=== PATIENT | female | born 1980 | race Caucasian/White ===

== ENCOUNTER 2016-05-23 06:47 | Day surgery (SDC) | payer MEDICAID ==
[2016-05-23] MEDS ORDERED: HYDROCODONE/APAP 7.5/325MG TABLET PO ONE (09:46)
[2016-05-23] MEDS ORDERED: DEXAMETHASONE PRESERVATIVE FREE 10MG/ML VIAL IV ONE (09:46)
--- NOTE | 2016-05-23 10:56 | Operative Note - Ferro ---
PAIN SERVICE OPERATIVE REPORT DATE OF PROCEDURE: 05/23/2016. SURGEON: Mekhi Alex D.O. PREOPERATIVE DIAGNOSIS: LUMBAR RADICULITIS, ICD10 CODE M54.16. PROCEDURE: Fluoroscopically guided bilateral transforaminal selective segment epidural injection at L4-5. ANESTHESIA: Local sedation. ANESTHESIA PROVIDER: Jovan Paz CRNA. INDICATIONS: This patient presents with a history of intractable lumbar radiculitis. The pain starts in the back but then extends across the hips and front of both legs. Diagnostics do show a disc bulge at L4-5 which is consistent with the pattern of pain. DESCRIPTION OF PROCEDURE: Intravenous line, vital sign monitoring, intravenous sedation. Prepped and draped with sterile technique. Under imaging, the lumbar foraminal opening at 4-5 was identified and marked bilaterally. The skin was infiltrated. Two separate 20-gauge needles, one at each foraminal opening. A total of 5.0 mL of 0.125% Marcaine with dexamethasone was injected. Both needles were removed. The back was cleaned, topical antibiotic and sterile dressing were applied. We will monitor and evaluate. Mekhi Alex D.O. Date Time JOB NUMBER: [id number] cc: Dr. Sky COSTELLO
[2016-05-23] MEDS ORDERED: MIDAZOLAM HCL 2MG/2ML VIAL IV ONE (13:17)
[2016-05-23] MEDS ORDERED: KETAMINE HCL 10 MG/ML (20ML) VIAL *PACU IV ONE (13:17)
[2016-05-23] MEDS ORDERED: FENTANYL PF 100MCG/2ML VIAL IV ONE (13:17)
[2016-05-23] MEDS ORDERED: LIDOCAINE 1% W/EPI 1:200,000 MPF 30ML SQ ONE (14:33)
[2016-05-23] MEDS ORDERED: 0.9 % SODIUM CHLORIDE 10 ML VIAL IVP ONE (14:33)
[2016-05-23] MEDS ORDERED: BUPIVACAINE 0.25% W/EPI MPF 30ML VIAL IVP ONE (14:33)
[2016-05-23] MEDS ORDERED: BUPIVACAINE 0.5% W/EPI MPF 30 ML VIAL IVP ONE (14:33)
== END 2016-05-23 09:00 | disposition home or self-care (01) ==
LOC: SUR 06:47
PROVIDERS: ATTEND Pain Medicine Interventional Pain Medicine
DX: M54.16 Radiculopathy, lumbar region (principal); I10 Essential (primary) hypertension; E11.9 Type 2 diabetes mellitus without complications; Z79.84 Long term (current) use of oral hypoglycemic drugs
CPT/HCPCS: 64483; 01935; Q9967; J1100; J3010

== ENCOUNTER 2016-06-20 07:15 | Day surgery (SDC) | payer MEDICAID ==
--- NOTE | 2016-06-20 09:33 | Operative Note ---
PAIN SERVICE OPERATIVE REPORT DATE OF PROCEDURE: 06/20/2016. SURGEON: Mekhi Alex D.O. PREOPERATIVE DIAGNOSIS: 1. OSTEOARTHRITIS, LEFT HIP, ICD10 CODE M16.11. 2. GREATER TROCHANTERIC BURSITIS, LEFT HIP, ICD10 CODE M70.61. PROCEDURES: 1. Fluoroscopically guided intra-articular injection left hip. 2. Fluoroscopically guided infiltration left greater trochanteric bursa. ANESTHESIA: Local sedation. ANESTHESIA PROVIDER: Jovan Paz CRNA. INDICATIONS: This patient presents with pain which is left hip. Examination shows an area of tenderness with abduction and adduction into the hip. Diagnostics and x-ray show only mild spondylosis. DESCRIPTION OF PROCEDURE: Intravenous line, vital sign monitoring, intravenous sedation. Prepped and draped with sterile technique. The patient is in the modified Machado position, left side up. The skin was infiltrated and then a 22- gauge needle was inserted into the bursa with 5.0 mL of 0.5% Marcaine with dexamethasone was injected. The skin over the trochanter was infiltrated with a 25-gauge needle into the bursa with 5.0 mL of the same solution injected. The areas were cleaned, topical antibiotic and sterile dressing were applied. We will monitor and evaluate. Mekhi Alex D.O. Date Time JOB NUMBER: [id number] cc: Dr. Rupinder COSTELLO
[2016-06-20] MEDS ORDERED: BUPIVACAINE 0.5% W/EPI MPF 30 ML VIAL IVP ONE (12:36)
[2016-06-20] MEDS ORDERED: 0.9 % SODIUM CHLORIDE 10 ML VIAL IVP ONE (12:36)
[2016-06-20] MEDS ORDERED: DEXAMETHASONE PRESERVATIVE FREE 10MG/ML VIAL IV ONE (12:36)
[2016-06-20] MEDS ORDERED: LIDOCAINE 1% W/EPI 1:200,000 MPF 30ML SQ ONE (12:36)
[2016-06-20] MEDS ORDERED: LIDOCAINE 2% MDV (20MG/ML) 20ML VIAL IV ONE (14:42)
[2016-06-20] MEDS ORDERED: FENTANYL PF 100MCG/2ML VIAL IV ONE (14:42)
[2016-06-20] MEDS ORDERED: MIDAZOLAM HCL 2MG/2ML VIAL IV ONE (14:42)
[2016-06-20] MEDS ORDERED: PROPOFOL 10 MG/ML VIAL IV ONE (14:42)
== END 2016-06-20 09:05 | disposition home or self-care (01) ==
LOC: SUR 07:15
PROVIDERS: ATTEND Pain Medicine Interventional Pain Medicine
DX: M16.12 Unilateral primary osteoarthritis, left hip (principal); M70.61 Trochanteric bursitis, right hip; I10 Essential (primary) hypertension; E11.9 Type 2 diabetes mellitus without complications; I25.10 Atherosclerotic heart disease of native coronary artery without angina pectoris
CPT/HCPCS: 20611; 01200; J1100; J3010

== ENCOUNTER 2016-11-07 07:06 | Day surgery (SDC) | payer MEDICAID ==
[2016-11-07] MEDS ORDERED: BUPIVACAINE 0.5% W/EPI MPF 30 ML VIAL IVP ONE (13:44)
[2016-11-07] MEDS ORDERED: BUPIVACAINE 0.5% (5MG/ML) PF 30ML VIAL IVP ONE (13:44)
[2016-11-07] MEDS ORDERED: BETAMETHASONE 6 MG/1 ML 5ML VIAL IM ONE (13:44)
[2016-11-07] MEDS ORDERED: LIDOCAINE 1% W/EPI 1:200,000 MPF 30ML SQ ONE (13:44)
--- NOTE | 2016-11-07 15:16 | Operative Note - Ferro ---
DATE OF SURGERY: 11/07/16 PREOPERATIVE DIAGNOSES: 1. OSTEOARTHRITIS, LEFT HIP, ICD-10 CODE = M16.12. 2. GREATER TROCHANTERIC BURSITIS, LEFT HIP, ICD-10 CODE = M70.62. OPERATION: 1. FLUOROSCOPICALLY-GUIDED INTRAARTICULAR INJECTION, LEFT HIP. 2. FLUOROSCOPICALLY-GUIDED INFILTRATION, LEFT HIP BURSA. SURGEON: HARRIS CEDENO D.O. ANESTHESIA: LOCAL SEDATION. ANESTHESIA PROVIDER: ASIYA SAN C.R.N.A. INDICATION: This patient presents with left hip pain. Diagnostics do show osteoarthritis. Pain is reproduced with abduction/adduction. There is tenderness along the lateral border consistent with bursitis. PROCEDURE: Intravenous line, vital sign monitoring, IV sedation, prepped and draped with sterile technique. Under imaging with the patient in a lateral Machado position, a 22-gauge needle was inserted intraarticular, left hip, with 5 mL of 0.5% Marcaine with Dexamethasone injected. The trochanter identified. Skin infiltrated and a 25-gauge needle to infiltrate 5 mL of the same solution into the bursa. Areas cleaned, topical antibiotic, and sterile dressing applied. We will monitor and evaluate. cc: Primary Physician JOB NUMBER: [id number] MTDD
[2016-11-07] MEDS ORDERED: FENTANYL PF 100MCG/2ML VIAL IV ONE (15:29)
[2016-11-07] MEDS ORDERED: PROPOFOL 10 MG/ML VIAL IV ONE (15:29)
[2016-11-07] MEDS ORDERED: LIDOCAINE 2% MDV (20MG/ML) 20ML VIAL IV ONE (15:29)
[2016-11-07] MEDS ORDERED: MIDAZOLAM HCL 2MG/2ML VIAL IV ONE (15:29)
== END 2016-11-07 09:15 | disposition home or self-care (01) ==
LOC: SUR 07:06
PROVIDERS: ATTEND Pain Medicine Interventional Pain Medicine
DX: M16.12 Unilateral primary osteoarthritis, left hip (principal); M70.62 Trochanteric bursitis, left hip
CPT/HCPCS: 20610; 01991; J3010

== ENCOUNTER → 2017-01-02 | Day surgery (SDC) | payer MEDICAID ==
[~2017-01-02] MED LIST: 0.9 % SODIUM CHLORIDE 10 ML VIAL IVP ONE; FENTANYL PF 100MCG/2ML VIAL IV ONE; HYDROCODONE/APAP 7.5/325MG TABLET PO ONE; LIDOCAINE 2% MDV (20MG/ML) 20ML VIAL IV ONE; MIDAZOLAM HCL 2MG/2ML VIAL IV ONE; PROPOFOL 10 MG/ML VIAL IV ONE
--- NOTE | 2017-01-02 22:15 | Operative Note - Ferro ---
DATE OF SURGERY: 01/02/17 PREOPERATIVE DIAGNOSIS: LUMBAR RADICULITIS, ICD-10 CODE = M54.16 AND M54.17. OPERATION: FLUOROSCOPIC-GUIDED LEFT TRANSFORAMINAL SELECTIVE SEGMENTAL EPIDURAL INJECTION L4-5 AND L5-S1. SURGEON: HARRIS CEDENO D.O. ANESTHESIA: LOCAL SEDATION. ANESTHESIA PROVIDER: ASIYA SAN CRNA. INDICATION: This patient presents with pain, which is low back, hip, and leg to the left. Diagnostic studies show both the 4-5 and a 5-1 disc. The current pattern reflects L4 to the hip at the front and L5 to the butt cheek and back of the leg. PROCEDURE: Intravenous line, vital sign monitoring, IV sedation. Prepped and draped in sterile technique. Lumbar foraminal opening on the left at 4-5 and 5- 1 both identified and marked and infiltrated. Two separate #20 gauge needles, one to each foraminal opening. 5 mL 0.125% Marcaine with Dexamethasone injected. Needle removed, back cleaned. Topical antibiotic and sterile dressing applied. Will monitor and evaluate. cc: Primary JOB NUMBER: [id number] MTDD
== END | disposition home or self-care (01) ==
LOC: SUR 06:53
PROVIDERS: ATTEND Pain Medicine Interventional Pain Medicine
DX: M54.16 Radiculopathy, lumbar region (principal); M54.17 Radiculopathy, lumbosacral region; E11.9 Type 2 diabetes mellitus without complications; Z79.4 Long term (current) use of insulin

== ENCOUNTER 2017-02-13 06:54 | Day surgery (SDC) | payer MEDICAID ==
[~2017-02-13 06:54] MED LIST changes: -0.9 % SODIUM CHLORIDE 10 ML VIAL IVP ONE; +ACETAMINOPHEN 1,000 MG/100 ML BTL IV ONE; -FENTANYL PF 100MCG/2ML VIAL IV ONE; -HYDROCODONE/APAP 7.5/325MG TABLET PO ONE; -LIDOCAINE 2% MDV (20MG/ML) 20ML VIAL IV ONE; -MIDAZOLAM HCL 2MG/2ML VIAL IV ONE; -PROPOFOL 10 MG/ML VIAL IV ONE
[2017-02-13] MEDS ORDERED: LIDOCAINE 1% W/EPI 1:200,000 MPF 30ML SQ ONE (11:06)
[2017-02-13] MEDS ORDERED: DEXAMETHASONE PRESERVATIVE FREE 10MG/ML VIAL IV ONE (11:06)
[2017-02-13] MEDS ORDERED: BUPIVACAINE 0.5% (5MG/ML) PF 30ML VIAL IVP ONE (11:06)
[2017-02-13] MEDS ORDERED: HYDROCODONE/APAP 7.5/325MG TABLET PO ONE (11:10)
[2017-02-13] MEDS ORDERED: MIDAZOLAM HCL 2MG/2ML VIAL IV ONE (16:23)
[2017-02-13] MEDS ORDERED: PROPOFOL 10 MG/ML VIAL IV ONE (16:23)
[2017-02-13] MEDS ORDERED: FENTANYL PF 100MCG/2ML VIAL IV ONE (16:23)
[2017-02-13] MEDS ORDERED: LIDOCAINE 2% MDV (20MG/ML) 20ML VIAL IV ONE (16:23)
--- NOTE | 2017-02-14 06:52 | Operative Note - Ferro ---
DATE OF SURGERY: 02/13/2017. PREOPERATIVE DIAGNOSIS: 1. OSTEOARTHRITIS OF THE LEFT HIP, ICD-10 CODE UNKNOWN. 2. GREATER TROCHANTERIC BURSITIS, ICD-10 CODE UNKNOWN. POSTOPERATIVE DIAGNOSIS: 1. OSTEOARTHRITIS OF THE LEFT HIP, ICD-10 CODE UNKNOWN. 2. GREATER TROCHANTERIC BURSITIS, ICD-10 CODE UNKNOWN. OPERATION: 1. FLUOROSCOPICALLY GUIDED INTRA-ARTICULAR INJECTION, LEFT HIP. 2. INFILTRATION BLOCK, LEFT GREATER TROCHANTERIC BURSA. SURGEON: Mekhi Alex D.O. ANESTHESIA: Local. ANESTHESIA PROVIDER: Jovan Paz CRNA INDICATION: The patient presents with pain which is in the left hip. Diagnostics are not available for review. PROCEDURE: Intravenous line, vital sign monitoring, and intravenous sedation. Prepped and draped with sterile technique under imaging. With the patient in modified Machado' position with the left side up, the skin was infiltrated laterally. A 22-gauge, 5-inch needle was then inserted intra-articular into the left hip with 8.0 cc of 0.5% Marcaine and dexamethasone injected. The skin over the left greater trochanter was infiltrated, and then a 22-gauge needle was inserted into the bursa with 5.0 mL of the same solution injected. All areas were cleaned. Topical and antibiotic and sterile dressings were applied. Will monitor and evaluate. MEKHI ALEX D.O. Date & Time JOB NUMBER: [id number] cc: [facility]
== END 2017-02-13 09:00 | disposition home or self-care (01) ==
LOC: SUR 06:54
PROVIDERS: ATTEND Pain Medicine Interventional Pain Medicine
DX: M16.12 Unilateral primary osteoarthritis, left hip (principal); E11.9 Type 2 diabetes mellitus without complications; Z79.4 Long term (current) use of insulin
CPT/HCPCS: 20611; 01992; J1100; J3010

== ENCOUNTER 2018-01-08 07:05 | Day surgery (SDC) | payer MEDICAID ==
[2018-01-08] MEDS ORDERED: *PACU ONLY* KETAMINE HCL 10 MG/ML (20ML) VIAL IV ONE (07:06)
[2018-01-08] MEDS ORDERED: LIDOCAINE 1% W/EPI 1:200,000 MPF 30ML SQ ONE (07:06)
[2018-01-08] MEDS ORDERED: BUPIVACAINE 0.5% (5MG/ML) PF 30ML VIAL IVP ONE (07:06)
[2018-01-08] MEDS ORDERED: FENTANYL PF 100MCG/2ML VIAL IV ONE (07:06)
[2018-01-08] MEDS ORDERED: BUPIVACAINE 0.5% W/EPI MPF 30 ML VIAL IVP ONE (07:06)
[2018-01-08] MEDS ORDERED: PROPOFOL 10 MG/ML VIAL IV ONE (07:06)
[2018-01-08] MEDS ORDERED: DEXAMETHASONE PRESERVATIVE FREE 10MG/ML VIAL IV ONE (07:06)
[2018-01-08] MEDS ORDERED: MIDAZOLAM HCL 2MG/2ML VIAL IV ONE (07:06)
--- NOTE | 2018-01-10 13:19 | Operative Note ---
DATE OF SURGERY: 01/08/18 PREOPERATIVE DIAGNOSIS: LUMBAR SPONDYLOSIS WITHOUT MYELOPATHY, ICD-10 CODE = M47.816. SURGERY: FLUOROSCOPIC-GUIDED INFILTRATION AND BLOCK BILATERAL LUMBAR FACETS 3-4 , 4-5, AND 5-1. SURGEON: HARRIS CEDENO D.O. ANESTHESIA: LOCAL SEDATION. ANESTHESIA PROVIDER: MARKO HAGEN CRNA INDICATIONS: This patient presents with back pain. Examination showed tenderness of the lumbar spine. Range of motion does cause pain in the back with extension. Diagnostic studies showed diffuse and multilevel spondylosis. SURGERY: Intravenous line, vital sign monitoring, IV sedation, prepped and draped sterile technique. Under imaging, the cervical facets at lumbar 3-4, 4-5 , and 5-1 were identified and marked, infiltrated with a local using a sterile technique and under imaging facets at 3-4, 4-5, and 5-1 were marked bilateral. Skin infiltrated and a #22 gauge, 3.5 inch needle into the facet, 1 mL of 0.5% Marcaine and Dexamethasone injected at each of the sites bilaterally. All areas cleaned. Topical antibiotic and sterile dressing was applied. We will monitor and evaluate. cc: Dr. Ro JOB NUMBER: [id number] MTDD
== END 2018-01-08 09:30 | disposition home or self-care (01) ==
LOC: SUR 07:05
PROVIDERS: ATTEND Pain Medicine Interventional Pain Medicine
DX: M47.816 Spondylosis without myelopathy or radiculopathy, lumbar region (principal)
CPT/HCPCS: 64483; 64484 ×2; 01936; J1100; J3010

== ENCOUNTER 2018-07-23 06:19 | Day surgery (SDC) | payer MEDICAID ==
[2018-07-23] MEDS ORDERED: FENTANYL PF 100MCG/2ML VIAL IV ONE (06:20)
[2018-07-23] MEDS ORDERED: LIDOCAINE 1% W/EPI 1:200,000 MPF 30ML SQ ONE (06:20)
[2018-07-23] MEDS ORDERED: MIDAZOLAM HCL 2MG/2ML VIAL IV ONE (06:20)
[2018-07-23] MEDS ORDERED: BUPIVACAINE 0.5% W/EPI MPF 30 ML VIAL IVP ONE (06:20)
[2018-07-23] MEDS ORDERED: DEXAMETHASONE PRESERVATIVE FREE 10MG/ML VIAL IV ONE (06:20)
[2018-07-23] MEDS ORDERED: KETAMINE HCL 100MG/1ML VIAL INJ ONE (06:20)
[2018-07-23] MEDS ORDERED: BUPIVACAINE 0.5% (5MG/ML) PF 30ML VIAL IVP ONE (06:20)
--- NOTE | 2018-07-27 18:20 | Operative Note ---
DATE: 07/23/2018. PREOPERATIVE DIAGNOSIS: 1. OSTEOARTHRITIS OF THE RIGHT HIP, ICD-10 CODE UNKNOWN. 2. GREATER TROCHANTERIC BURSITIS OF THE RIGHT HIP, ICD-10 CODE UNKNOWN. POSTOPERATIVE DIAGNOSIS: 1. OSTEOARTHRITIS OF THE RIGHT HIP, ICD-10 CODE UNKNOWN. 2. GREATER TROCHANTERIC BURSITIS OF THE RIGHT HIP, ICD-10 CODE UNKNOWN. PROCEDURES: 1. Fluoroscopically guided intra-articular injection, right hip. 2. Fluoroscopically guided infiltration, right greater trochanteric bursa. ANESTHESIA: Local sedation. ANESTHESIA PROVIDER: Ann Marie Arreguin CRNA. INDICATIONS: This patient presents with pain in the right hip. Diagnostics confirm the arthritic change. Examination shows pain with abduction and adduction of the hip and pain directly over the trochanter. DESCRIPTION OF PROCEDURE: Intravenous line, vital sign monitoring, intravenous sedation by Anesthesia. The patient was positioned in Modified Machado position with the right hip up. Sterile prep, sterile technique. Under imaging the skin was infiltrated laterally. A 22-gauge, 5-inch needle was inserted intra- articularly using AP and lateral imaging without incident. A total of 5.0 mL 0.5% Marcaine with dexamethasone was injected into the hip. The skin over the trochanter was infiltrated. A 22-gauge needle was placed into the bursa with 5.0 mL of the same solution injected atraumatically. Both needles were removed. The areas were cleaned. Topical antibiotic and sterile dressing were applied. Will monitor and evaluate. Job Number: [id number] cc: Primary care physician PRAVIN
== END 2018-07-23 08:30 | disposition home or self-care (01) ==
LOC: SUR 06:19
PROVIDERS: ATTEND Pain Medicine Interventional Pain Medicine
DX: M16.11 Unilateral primary osteoarthritis, right hip (principal); M70.61 Trochanteric bursitis, right hip; F17.210 Nicotine dependence, cigarettes, uncomplicated
CPT/HCPCS: 20611 ×2; 01992; 36416; 82948; J1100; J3010; J3490

== ENCOUNTER → 2018-10-01 | Day surgery (SDC) | payer MEDICAID ==
[~2018-10-01] MED LIST changes: -ACETAMINOPHEN 1,000 MG/100 ML BTL IV ONE; +ACETAMINOPHEN 1,000 MG/100 ML BTL IVPB ONE; +BUPIVACAINE 0.5% W/EPI MPF 30 ML VIAL SQ ONE; +CEFAZOLIN 0.5 G in 0.9 % SODIUM CHLORIDE 1000ML 500 ML IVP ONE; +CEFAZOLIN 1G VIAL IVP ONE; +CEFAZOLIN 2 Gram 2 GM/50 ML BAG IVPB ONE; +FAMOTIDINE 20MG TABLET PO ONE; +FENTANYL PF 100MCG/2ML VIAL IV ONE; +GLYCOPYRROLATE 0.2 MG/ML ML IV ONE; +HYDROCODONE/APAP 7.5/325MG TABLET PO ONE; +HYDROMORPHONE HCL 0.6 GM in 0.9 % SODIUM CHLORIDE 10ML VIA 20 ML IV ONE; +HYDROMORPHONE PF 2MG/ML AMP 0.008 MG in 0.9 % SODIUM CHLORIDE 10ML VIA 0.996 ML IV ONE; +KETAMINE HCL 100MG/1ML VIAL INJ ONE; +LIDOCAINE 1% W/EPI 1:200,000 MPF 30ML SQ ONE; +LIDOCAINE 2% MDV (20MG/ML) 20ML VIAL IV ONE; +METOCLOPRAMIDE 10 MG TABLET PO ONE; +MIDAZOLAM HCL 2MG/2ML VIAL IV ONE; +PROPOFOL 10 MG/ML VIAL IV ONE; +RINGERS SOLUTION,LACTATED 1,000 ML IV ONE
--- NOTE | 2018-10-01 07:17 | History and Physical - Ferro ---
CHIEF COMPLAINT/HISTORY OF CHIEF COMPLAINT: This patient with a history of an intractable thoracic radiculopathy has a spinal infusion system which is infusing Hydromorphone. Over the last number of refills and reprogramming's, batter depletion was noted. She is here for battery change without perimeter changes. PAST MEDICAL HISTORY: Hypertension, non-cardiogenic chest wall pain. PAST SURGICAL HISTORY: Pump implant. MEDICATIONS ON ADMISSION: List top be provided. ALLERGIES: MORPHINE AND BACTRIM. FAMILY/PSYCHOSOCIAL HISTORY: Social history - None. Family history - Noncontributory. SYSTEMS REVIEW: The patient seems appropriate in no acute distress. The remainder of the systems review is positive for degenerative arthritis. PHYSICAL EXAMINATION: Height and weight are not known. Vital signs - Not available. HEENT: Within normal limits. LUNGS: Clear. HEART: Rapid and regular. ABDOMEN: Nontender. MUSCULOSKELETAL: Examination of the musculoskeletal system shows the pump at the left posterior gluteal line. The incision is intact. NEUROLOGIC: Cranial nerves are intact. IMPRESSION: THORACIC RADICULOPATHY, ICD-10 CODE M54.14 WITH INTRASPINAL INFUSION DEVICE INFUSING HYDROMORPHONE WITH PUMP BATTERY DEPLETION. PLAN: The patient is here on an outpatient basis for removal and replacement of the pump generator or battery. The procedure will be considered outpatient. The potential risks and side effects, and complications have all been discussed and discussed. JOB NUMBER: [id number] [facility]
--- NOTE | 2018-10-03 07:10 | Operative Note ---
DATE OF SURGERY: 10/01/2018 PREOPERATIVE DIAGNOSES: 1. Thoracic and lumbar radiculopathy, ICD10 code M54.14 and M54.16. 2. Implanted spinal infusion system hydromorphone with battery depletion. OPERATION: 1. Fluoroscopic-guided incision and subcutaneous dissection and removal and replacement of programmable pump at left posterior gluteal margin. 2. Catheter revision to programmable pump. 3. Interface revised catheter with pump, placement of pump into pouch, closure of incisions Stratafix suture 2-0 fascia, 3-0 skin, Dermabond closure. 4. Programming of pump to deliver by continuous infusion hydromorphone at 5.33 mg a day. SURGEON: Mekhi Alex, ANESTHESIA: Local with sedation. ANESTHESIA PROVIDER: Broderick Lara INDICATION: This is a patient with a history of intractable thoracic and lumbar radiculopathy who has a spinal infusion system with hydromorphone which over the last number of refills has identified a battery depletion. She is here for battery replacement. PROCEDURE: Intravenous line, vital signs monitoring, IV sedation by Anesthesia. Patient positioned prone. Sterile prep, sterile technique at the left posterior gluteal margin. The pump incision infiltrated, incision made, subcutaneous dissection was conducted to the pump. The pump was then exteriorized and from the internal catheter. A small blemish to the catheter somewhat suspicious was resected out. New catheter component interfaced to the existing catheter. The revised catheter was then interfaced to a new 20 mL programmable pump placed onto the field prefilled hydromorphone at 30 mg/mL. A curved 24- gauge Villagran needle was inserted into the access port and 1 mL of catheter contents was aspirated clearing the catheter of opioid and CSF mixture. No diagnostic myelography was performed but the catheter component was cleared. The pump was then primed to ensure appropriate initiation of the infusion through the pump. The pump was then placed into the pouch, secured to the posterior pouch with nonabsorbable suture and then the incision was closed using Stratafix suture, 2-0 fascia, 3-0 skin, Dermabond closure. She was transported to the recovery room stable. No side effects from the procedure or sedation. Fully awake and alert. She was appropriate for discharge. DISCHARGE INSTRUCTIONS: 1. Sites will remain clean and dry. No showering or bathing in any way that would disrupt dressings. 2. Standard medications resumed including the antibiotic Levaquin 500 mg once a day for 14 days. 3. Office to contact the patient at home to set up a time in the next 5-7 days to evaluate the site. Until then, she is to keep her activities controlled, limit bend, lift, push, pull. Spinal opioid side effects of respiratory depression, nausea, vomiting, constipation, urinary retention, lightheadedness, or rash. All other instructions provided. Numbers to contact if problems given. She was then prepared for discharge. PRAVIN
== END | disposition home or self-care (01) ==
LOC: SUR 12:28
PROVIDERS: ATTEND Pain Medicine Interventional Pain Medicine
DX: M54.14 Radiculopathy, thoracic region (principal); M54.16 Radiculopathy, lumbar region; E11.9 Type 2 diabetes mellitus without complications; F17.210 Nicotine dependence, cigarettes, uncomplicated
CPT/HCPCS: 62350; 62362; 01936; 62368; Q9967; J3010; J0690; J1170; J3490; C1755; C1776; J7030; J7120